=== PATIENT | male | born 1970 | race Two or more races ===

== ENCOUNTER 2024-06-23 11:09 | Emergency (ER) | payer MEDICAID, OTHER ==
[~2024-06-23] VITALS: Ht 177.8 cm; Wt 82.8 kg
[2024-06-23] MEDS ORDERED: CEPH500C PO (12:23)
[2024-06-23] MEDS ORDERED: ACET500T58 PO (12:23)
--- NOTE | 2024-06-23 12:23 | ED.PDOC ---
HPI Comments 53-year-old male with a MHx presents with for a laceration to the left forearm onset occurred 2 hours ago after patient attempted to climb a fence Last tetanus shot unknown Denies numbness tingling to the affected extremity Chief Complaint: Laceration Time Seen by MD: 11:36 Primary Care Provider: JOSE Reviewed Notes: Nurses Notes, Medications, Allergies Allergies: Coded Allergies: NO KNOWN ALLERGIES (Unverified , 06/23/24) Home Meds Active Scripts Cephalexin Monohydrate (Cephalexin) 500 Mg Cap, 1 CAP PO QID for 7 Days, #28 CAP 0 Refills Prov:KENDRICK GARCIA SPLICING SUPERVISOR 06/23/24 Acetaminophen (Acetaminophen) 500 Mg Tab, 500 MG PO QIDP for 14 Days, #56 TAB 0 Refills Prov:KENDRICK GARCIA SPLICING SUPERVISOR 06/23/24 Information Source: Patient Mode of Arrival: Ambulatory Complexity: Simple, Intermediate Laceration Length (cm): 4 Past Medical History PAST MEDICAL HISTORY: Pt Confused Surgical History: Appendectomy, Pt Confused Family History Family History: Reviewed,noncontributory to illness, Pt Confused Social History Smoker: Pt Confused Alcohol: Pt Confused Drugs: Pt Confused Lives In: Pt Confused All Other Systems: Reviewed and Negative (Per HPI) Physical Exam General Appearance: No Apparent Distress, Normal HEENT: Normal ENT Inspection, Pharynx Normal, TMs Normal Neck: Full Range of Motion, Non-Tender, Normal, Normal Inspection Respiratory: Chest Non-Tender, Lungs Clear, No Accessory Muscle Use, No Respiratory Distress, Normal Breath Sounds Cardiovascular: No Edema, No JVD, No Murmur, No Gallop, Normal Peripheral Pulses, Regular Rate/Rhythm Breast Exam: Deferred Gastrointestinal: No Organomegaly, Non Tender, No Pulsatile Mass, Normal Bowel Sounds, Soft Genitalia: Deferred Pelvic: Deferred Rectal: Deferred Extremities: No calf tenderness, Normal capillary refill, Normal inspection, Normal range of motion, Non-tender, No pedal edema Musculoskeletal : Apperance: Normal Neurologic: Alert, marine steamfitter II-XII nml as Tested, No Motor Deficits, Normal Affect, Normal Mood, No Sensory Deficits Cerebellar Function: Normal Reflexes: Normal Skin: Dry, Normal Color, Warm Lymphatic: No Adenopathy Was a procedure done? Was a procedure done?: Yes Sedation Sedation?: No Laceration Repair : Location left forearm Length 4 cm Anesthetic: Lidocaine Laceration Repair Prep: Saline, Betadine Laceration Repair Wound Comple: epidermis/dermis repair Laceration Repair: Size (4-0), Simple, Bacitracin, Non-adherent gauze, Gauze Informed consent obtained: Yes Risks, benefits, and alternati: Yes Images 1 - Differential diagnosis Generic Laceration: Tendon Injury, Abrasion/Contusion, Laceration X-Ray, Labs, Meds, VS Vital Signs Date Time Temp Pulse Resp B/P (MAP) Pulse Ox O2 Delivery O2 Flow Rate FiO2 06/23/24 12:38 98.0 77 18 139/88 (105) 100 98.0 06/23/24 12:38 77 18 100 Room Air 06/23/24 11:22 98.1 77 18 139/88 (105) 100 Current Medications Medications (Trade) Dose Ordered Sig/Ed Route Start Time Stop Time Status Last Admin Diphtheria/ Tetanus/Acell Pertussis (Boostrix T-Dap) 0.5 ml ONCE ONCE IM 06/23/24 12:30 06/23/24 12:31 DC 06/23/24 12:54 X-Ray, Labs, Meds, VS Comment The skin edges of the laceration were infiltrated with1% lidocaine The skin surrounding the laceration was scrubbed with Betadine soaked sterile gauze The laceration was irrigated under high-pressure with a 60 mL syringe A total of 1L sterile water was used. Including diluted Betadine solution The laceration was prepped in sterile fashion with sterile drapes On examination under direct light, there was no foreign body seen The laceration was repaired in simple interrupted technique There was no continuing bleeding on repair. There were no complications related to repair Antibiotics Tetanus prophylaxis: Education and follow-up instructions provided Wound check in 2 days Return sooner for signs of infection such as fevers, increased pain, redness, green, yellow discharge, or any concerns Keep wound dry for 24 to 48 hours; dry dressing may be changed Protect from sunlight and keep area clean and dry. Use soap and water if it gets dirty High risk of possible scarring and education provided on ways to minimize scarring after wound heals Also provided education on possible complications post procedure including wound dehiscence, infection, etc. Time of 1ST Reevaluation: 12:00 Reevaluation 1ST: Improved Patient Education/Counseling: Diagnosis, Treatment Family Education/Counseling: Diagnosis, Treatment Departure 1 Departure Time of Disposition: 12:22 Impression: Primary Impression: Laceration Disposition: HOME / SELF CARE / HOMELESS Condition: Stable e-Prescriptions Cephalexin Monohydrate (Cephalexin) 500 Mg Cap 1 CAP PO QID for 7 Days, #28 CAP 0 Refills Prov: KENDRICK GARCIA SPLICING SUPERVISOR 06/23/24 Acetaminophen (Acetaminophen) 500 Mg Tab 500 MG PO QIDP for 14 Days, #56 TAB 0 Refills Prov: KENDRICK GARCIA NP 06/23/24 Discharged With: Self Critical Care Note Critical Care Time?: No Stability Stability form required: No Heart Score Heart Score: Heart Score Response (Comments) Value History N/A 0 EKG N/A 0 Age N/A 0 Risk Factors N/A 0 Troponin N/A 0 Total 0 KENDRICK GARCIA NP Jun 23, 2024 12:23
[2024-06-23 12:38] VITALS: BP 139/88; PULSE 77; RESP 18; TEMP 98; O2SAT 100
[2024-06-23] MEDS: TETANUS-DIPTH-ACEL PERTUSSIS 0.5ML SYR Tdap IM ONE (12:54)
== END 2024-06-23 12:55 | disposition home or self-care (01) ==
LOC: ER 11:09
DX: S51.812A Laceration without foreign body of left forearm, initial encounter (principal); F17.200 Nicotine dependence, unspecified, uncomplicated; Z90.49 Acquired absence of other specified parts of digestive tract; W26.8XXA Contact with other sharp object(s), not elsewhere classified, initial encounter; Y93.39 Activity, other involving climbing, rappelling and jumping off; Y92.89 Other specified places as the place of occurrence of the external cause; Y99.8 Other external cause status
CPT/HCPCS: 12002; 90471; 90715

== ENCOUNTER 2024-09-07 21:48 | Emergency (ER) | payer MEDICAID ==
[~2024-09-07] VITALS: Ht 177.8 cm; Wt 87.8 kg
[~2024-09-07 21:48] MED LIST: ACET500T58 PO; CEPH500C PO
[2024-09-08] MEDS: LIDOCAINE 1% HCL (LOCAL ANESTH.) INJ 20ML MDV ID ONE (01:45)
[2024-09-08 02:11] VITALS: BP 132/64; PULSE 55; RESP 18; TEMP 97.9; O2SAT 98
--- NOTE | 2024-09-08 02:46 | ED.PDOC ---
HPI Comments PATIENT WENT TO KISS NEIGHBORS DOG(FOREST) AND IT BIT HIS LIP AND NOSE, CURRENTLY BLEEDING HAS SUBSIDED. DENIES FEVER, CHILLS, STATES LAST TETANUS SHOT WAS 2 MONTHS AGO. Chief Complaint: Animal Bite Time Seen by MD: 22:29 Primary Care Provider: NONE Reviewed Notes: Nurses Notes, Medications, Allergies Allergies: Coded Allergies: NO KNOWN ALLERGIES (Unverified , 06/23/24) Home Meds Active Scripts Cephalexin Monohydrate (Cephalexin) 500 Mg Cap, 1 CAP PO QID for 7 Days, #28 CAP 0 Refills Prov:KENDRICK GARCIA FLIGHT FOLLOWER 06/23/24 Acetaminophen (Acetaminophen) 500 Mg Tab, 500 MG PO QIDP for 14 Days, #56 TAB 0 Refills Prov:KENDRICK GARCIA FLIGHT FOLLOWER 06/23/24 Mode of Arrival: Ambulatory Complexity: Intermediate Laceration Length (cm): 1 Past Medical History PAST MEDICAL HISTORY: Denies Surgical History: Denies all surgeries Family History Family History: Reviewed,noncontributory to illness, Pt Confused Constitutional: denies: chills, diaphoresis, fatigue, fever, malaise, sweats, weakness, others EENTM: denies: blurred vision, double vision, ear bleeding, ear discharge, ear drainage, ear pain, ear ringing, eye pain, eye redness, hearing loss, mouth pain, mouth swelling, nasal discharge, nose bleeding, nose congestion, nose pain, photophobia, tearing, throat pain, throat swelling, voice changes, others Respiratory: denies: cough, hemoptysis, orthopnea, SOB at rest, shortness of b reath, SOB with excertion, stridor, wheezing, others Cardiovascular: denies: chest pain, dizzy spells, diaphoresis, Dyspnea on exertion, edema, irregular heart beat, left arm pain, lightheadedness, palpitations, PND, syncope, others Gastrointestinal: denies: abdomen distended, abdominal pain, blood streaked bowels, constipated, diarrhea, dysphagia, difficulty swallowing, hematemesis, melena, nausea, poor appetite, poor fluid intake, rectal bleeding, rectal pain, vomiting, others Genitourinary: denies: burning, dysuria, flank pain, frequency, hematuria, incontinence, penile discharge, penile sore, pain, testicle pain, testicle swelling, urgency, others Neurological: denies: dizziness, fainting, headache, left sided numbness, left sided weakness, numbness, paresthesia, pre-existing deficit, right sided numbness, right sided weakness, seizure, speech problems, tingling, tremors, weakness, others Musculoskeletal: denies: back pain, gout, joint pain, joint swelling, muscle pain, muscle stiffness, neck pain, others Integumetry: reports: wounds (LACERATION TO UPPER LIP); denies: bruises, change in color, change in hair/nails, dryness, laceration, lesions, lumps, rash, others Allergic/Immunocompromised: denies: Difficulty Healing, Frequent Infections, Hives, Itching, others Hematologic/Lymphatic: denies: anemia, blood clots, easy bleeding, easy bruising, swollen glands, others Endocrine: denies: excessive hunger, excessive sweating, excessive thirst, excessive urination, flushing, intolerance to cold, intolerance to heat, unexplained weight gain, unexplained weight loss, others Psychiatric: denies: anxiety, bipolar disorder, depression, hopeless, panic disorder, schizophrenia, sleepless, suicidal, others Physical Exam General Appearance: No Apparent Distress, Normal HEENT: Pharynx Normal Neck: Full Range of Motion, Non-Tender Respiratory: Lungs Clear, No Respiratory Distress, Normal Breath Sounds Cardiovascular: No Murmur, Normal Peripheral Pulses, Regular Rate/Rhythm Breast Exam: Deferred Gastrointestinal: Non Tender, Soft Genitalia: Deferred Pelvic: Deferred Rectal: Deferred Extremities: Normal capillary refill, Normal inspection, Normal range of motion, Non-tender, No pedal edema Musculoskeletal : Apperance: Normal Neurologic: Alert, snubber II-XII nml as Tested, No Motor Deficits, Normal Affect, Normal Mood, No Sensory Deficits Cerebellar Function: Normal Reflexes: Normal Skin: Dry, Lacerations (FULL-THICKNESS LACERATION LEFT SIDE UPPER LIP THROUGH THE MARGIN APPROXIMATE 1.5CM), Normal Color, Warm Lymphatic: No Adenopathy Was a procedure done? Was a procedure done?: Yes Sedation Sedation?: No Informed consent obtained: Yes Laceration Repair : Location RIGHT SIDE UPPER LIP Length 1.5 CM Anesthetic: Lidocaine, Without epi Laceration Repair Prep: Saline, Betadine Laceration Repair Wound Comple: epidermis/dermis repair, wound margins Laceration Repair: Number of sutures (3), Simple Informed consent obtained: Yes Risks, benefits, and alternati: Yes Notes PATIENT TOLERATED PROCEDURE WELL MINIMAL BLOOD LOSS GOOD APPROXIMATION Differential diagnosis Suture Removal: Cellulitis Generic Laceration: Abrasion/Contusion, Laceration, Avulsion X-Ray, Labs, Meds, VS Vital Signs Date Time Temp Pulse Resp B/P (MAP) Pulse Ox O2 Delivery O2 Flow Rate FiO2 09/08/24 02:11 55 18 98 Room Air 09/08/24 02:11 97.9 55 18 132/64 (86) 98 97.9 09/07/24 22:21 97.9 59 14 129/58 (81) 96 X-Ray, Labs, Meds, VS Comment SEE PROCEDURE NOTE. SCRIPT AUGMENTIN TWICE DAILY X7 DAYS. ADVISED FOLLOW UP WITH HIS PCP IN 2-3 DAYS NECESSARY FOR WOUND RE-EVALUATION ABSORBABLE SUTURES USED. RETURN PRECAUTIONS GIVEN PATIENT INDICATES UNDERSTANDING AND AGREES WITH DISCHARGE PLAN OF CARE. Time of 1ST Reevaluation: 02:44 Reevaluation 1ST: Improved Patient Education/Counseling: Diagnosis, Treatment, Prognosis, Need For Follow Up Family Education/Counseling: No Family Present Departure 1 Departure Time of Disposition: 02:45 Impression: Primary Impression: Laceration of vermilion border of upper lip Qualified Codes: S01.511A - Laceration without foreign body of lip, initial encounter Disposition: 01 HOME / SELF CARE / HOMELESS Condition: Stable Discharged With: Self Critical Care Note Critical Care Time?: No Stability Stability form required: JOAQUÍN Lopes Sep 08, 2024 02:46
[2024-09-08] MEDS ORDERED: AUG875T PO (03:04)
== END 2024-09-08 03:06 | disposition home or self-care (01) ==
LOC: ER 21:48
DX: S01.511A Laceration without foreign body of lip, initial encounter (principal); S01.551A Open bite of lip, initial encounter; Z79.899 Other long term (current) drug therapy; W54.0XXA Bitten by dog, initial encounter; Y93.89 Activity, other specified; Y92.89 Other specified places as the place of occurrence of the external cause; Y99.8 Other external cause status
CPT/HCPCS: 12011; 99282; J2003